=== PATIENT | female | born 1975 | race Asian ===

== ENCOUNTER 2019-05-30 23:01 | Emergency (ER) | payer OTHER ==
[~2019-05-30] VITALS: Wt 56.2 kg
[~2019-05-30 23:01] MED LIST: ULTRAM50 MG PO
[2019-05-30 23:53] LABS: BASO % 0.3 % (0.0-1.0); EOS % 0.7 % (1.0-4.0); HEMATOCRIT 35.8 % (37.0-47.0); HEMOGLOBIN 11.9 g/dl (12.0-16.0); LYMPH # 0.8 10*3/uL (1.3-4.4); LYMPH % 12.4 % (27.0-41.0); MEAN CORPUSCULAR HGB 31.2 pg (27.0-31.0); MEAN CORPUSCULAR HGB CONC 33.2 g/dl (33.0-37.0); MEAN PLATELET VOLUME 9.7 fl (9.6-12.3); MONO # 0.6 10*3/uL (0.1-1.0); MONO % 9.4 % (3.0-9.0); NEUT # 4.7 10*3/uL (2.3-7.9); PLATELET COUNT AUTOMATED 176 10*3/uL (130-400); RED BLOOD COUNT 3.81 10*6/uL (4.10-5.10); RED CELL DISTRI WIDTH 12.9 % (0-14.5); WHITE BLOOD COUNT 6.1 10*3/uL (4.8-10.8)
[2019-05-31 00:07] LABS: ALBUMIN 3.8 gm/dl (3.1-4.5); ALKALINE PHOSPHATASE 42 U/L (45-117); BUN 12 mg/dl (7-24); CHLORIDE 107 mmol/L (98-107); CREATININE 0.84 mg/dL (0.55-1.02); POTASSIUM 3.5 mmol/L (3.5-5.1); SGOT/AST 13 IU/L (3-35); SGPT/ALT 15 U/L (12-78); SODIUM 137 mmol/L (136-145); TOTAL PROTEIN 7.3 gm/dL (6.4-8.2)
[2019-05-31] MEDS ORDERED: TAMIFLU 75MG CA75 MG PO (00:37)
== END 2019-05-31 00:41 | disposition home or self-care (01) ==
LOC: ED 23:01
PROVIDERS: Nurse Practitioner Family
DX: J02.9 Acute pharyngitis, unspecified (principal); R05 Cough; R50.9 Fever, unspecified; R53.83 Other fatigue; R09.89 Other specified symptoms and signs involving the circulatory and respiratory systems

== ENCOUNTER 2021-01-10 13:20 | Emergency (ER) | payer OTHER ==
[~2021-01-10 13:20] MED LIST changes: +TAMIFLU 75MG CA75 MG PO
[2021-01-10] MEDS ORDERED: PREDNISONE10 MG PO (14:52)
== END 2021-01-10 15:30 | disposition home or self-care (01) ==
LOC: ED 13:20
DX: L25.9 Unspecified contact dermatitis, unspecified cause (principal)